=== PATIENT | male | born 1990 | race Caucasian/White ===

== ENCOUNTER 2025-01-03 15:50 | Emergency (ER) | payer MEDICAID ==
[~2025-01-03] VITALS: Ht 193 cm; Wt 90.7 kg
[2025-01-03] MEDS ORDERED: LIDOCAINE 1% INJ 50 ML MDV IJ ONE (17:23)
[2025-01-03] MEDS ORDERED: SULF1TAB48 PO (17:53)
[2025-01-03 18:06] VITALS: BP 125/89; TEMP 98.7; O2SAT 100
== END 2025-01-03 18:07 | disposition home or self-care (01) ==
LOC: ER 16:18
DX: L72.9 Follicular cyst of the skin and subcutaneous tissue, unspecified (principal); Z87.442 Personal history of urinary calculi
CPT/HCPCS: 99283; 10060; J3490; A6403; A6407